=== PATIENT | male | born 1980 | race Hispanic/Latino ===

== ENCOUNTER 2018-05-02 10:47 | Emergency (ER) | payer OTHER ==
[2018-05-02 11:11] VITALS: RESP 18
[2018-05-02] MEDS ORDERED: Sodium Chloride 0.9% 1,000 ML IV STA ×2 (11:21→13:07)
--- NOTE | 2018-05-02 11:25 | ED PDOC ---
HPI: Influenza Additional complaint(s):: CC: bodyaches, fever and chills HPI: 37 yo male PMHx HTN presents to ER with complaints of bodyaches, fever (102.4 F tmax last night) and chills since last night. Patient reports feeling tired x 1.5 weeks. States he went to [facility] this AM and was positive for influenza. He received depo-medrol IM injection at the urgent care and was advised to come to ER. Patient reports feeling nauseous this morning but not now. Reports nasal congestion but denies cough, dyspnea, chest pain, abdominal pain, vomiting or diarrhea. Patient did not receive flu vaccine. PMD: [place] PMHx: HTN PSx: denies Social hx: smokes 3-4 cigarettes daily x 10 yrs. Drinks socially. Denies drugs uses Family hx: father: HTN Medication: Lisinopril 20 mg Allergies: NKDA <Sultan Tim - Last Filed: 05/02/18 14:10> <Giacomo Puentes - Last Filed: 05/02/18 15:44> Time Seen by Provider: 05/02/18 10:55 Chief Complaint: Flu-like Symptoms Past Medical History Vital Signs: Last Vital Signs Temp 102.7 F H 05/02/18 11:10 Pulse 108 H 05/02/18 11:10 Resp 18 05/02/18 11:10 BP 133/69 05/02/18 11:10 Pulse Ox 96 05/02/18 11:10 - Medical History PMH: HTN - Immunization History Hx Tetanus Toxoid Vaccination: No Hx Influenza Vaccination: No Hx Pneumococcal Vaccination: No <Sultan Tim - Last Filed: 05/02/18 14:10> Vital Signs: Last Vital Signs Temp 99.9 F H 05/02/18 13:38 Pulse 99 H 05/02/18 13:38 Resp 18 05/02/18 12:29 BP 111/65 05/02/18 12:29 Pulse Ox 96 05/02/18 14:12 - Family History Family History: States: Unknown Family Hx <Giacomo Puentes - Last Filed: 05/02/18 15:44> - Home Medications Home Medications: Ambulatory Orders Medication Instructions Recorded Benzonatate [Tessalon Perles] 100 mg PO BID PRN 5 Days sgl 05/02/18 Ibuprofen [Motrin] 600 mg PO TID 7 Days tab 05/02/18 Oseltamivir Phosphate [Tamiflu] 75 mg PO BID 5 Days capsule 05/02/18 - Allergies Allergies/Adverse Reactions: Allergies Allergy/AdvReac Type Severity Reaction Status Date / Time No Known Allergies Allergy Verified 05/02/18 11:09 Review of Systems ROS Statement: Except As Marked, All Systems Reviewed And Found Negative <Tim - Last Filed: 05/02/18 14:10> Physical Exam - Physical Exam Appears: Positive for: Non-toxic, No Acute Distress Head Exam: Positive for: ATRAUMATIC, NORMOCEPHALIC Skin: Positive for: Normal Color, Warm ENT: Positive for: Pharyngeal Erythema, Tonsillar Swelling. Negative for: Tonsillar Exudate Neck: Positive for: Normal, Supple Cardiovascular/Chest: Positive for: Tachycardia (regular rhythm, normal S1,S2) Respiratory: Positive for: Normal Breath Sounds. Negative for: Crackles, Rales, Rhonchi, Wheezing, Respiratory Distress Gastrointestinal/Abdominal: Positive for: Normal Exam, Bowel Sounds, Soft. Negative for: Tenderness Neurologic/Psych: Positive for: Alert, Oriented <[place] - Last Filed: 05/02/18 14:10> - Physical Exam Respiratory: Positive for: Normal Breath Sounds Back: Positive for: Normal Inspection <Giacomo Puentes - Last Filed: 05/02/18 15:44> - Laboratory Results Result Diagrams: 05/02/18 11:50 05/02/18 11:50 - ECG O2 Sat by Pulse Oximetry: 96 - Progress ED Course And Treament: 37 yo male has fever, chills and bodyaches. +influeza test at urgent care this AM Plan: CBC CMP CXR EKG [place] test Troponin Toradol IVF: NS 1 L @1000 CC/HR Tamiflu 75 mg Patient's WBC is 18.9 with left shift Additional 1 L IVF, VBG and lactic acid ordered VBG and lactic acid unremarkable Patient's HR and fever improving. Patient is feeling better. Plan d/w Dr. Puentes <Sultan Tim - Last Filed: 05/02/18 14:10> - Laboratory Results Result Diagrams: 05/02/18 11:50 05/02/18 11:50 Interpretation Of Abn Labs: 18.9 wbc - ECG Pulse Ox Interpretation: Normal - Progress ED Course And Treament: 1540: Stable. AAOx3. Pain free. Wants to go home. Feels much better. <Giacomo Puentes - Last Filed: 05/02/18 15:44> Disposition <Sultan Tim - Last Filed: 05/02/18 14:10> - Patient ED Disposition Is Patient to be Admitted: No Counseled Patient/Family Regarding: Studies Performed, Diagnosis, Need For Followup, Rx Given - Disposition Disposition: Routine/Home Disposition Time: 15:41 <Giacomo Puentes - Last Filed: 05/02/18 15:44> - Clinical Impression Clinical Impression: Influenza, Leukocytosis - Disposition Referrals: [facility] [Outside] - 05/03/18 Condition: STABLE Additional Instructions: Return if not better in 3 days. Prescriptions: Benzonatate [Tessalon Perles] 100 mg PO BID PRN 5 Days sgl PRN Reason: Cough Ibuprofen [Motrin] 600 mg PO TID 7 Days tab Oseltamivir Phosphate [Tamiflu] 75 mg PO BID 5 Days capsule Instructions: Flu, Adult (DC), White Blood Cell Count Differential Test Forms: scrible (Bulgarian), [facility] ED School/Work Excuse Supervising Attending Note - Supervising Attending Note The Documented history was done by the: Physician Trans Router The documented physical exam was done by the: Physician Trans Router The documented procedures were done by the: Physician Trans Router - Attestation: I have personally seen and examined this patient.: Yes I have fully participated in the care of the patient.: Yes I have reviewed all pertinent clinical information: Yes - Notes: Notes:: Cough. Positive flu at prompt MD. <Giacomo Puentes - Last Filed: 05/02/18 15:44>
--- NOTE | 2018-05-02 11:58 | RAD ---
Date of service: 05/02/2018 HISTORY: dyspnea COMPARISON: No prior. FINDINGS: LUNGS: The lungs are well inflated and clear. PLEURA: No pleural effusions or pneumothorax. CARDIOVASCULAR: The heart is normal in size. No aortic atherosclerotic calcification present. OSSEOUS STRUCTURES: Within normal limits for the patient's age. VISUALIZED UPPER ABDOMEN: Normal. OTHER FINDINGS: None. IMPRESSION: No active pulmonary disease.
[2018-05-02 12:08] LABS: BASO % 0.1 % (0.0-2.0); EOS % 0.1 % (0.0-4.0); HEMOGLOBIN 14.2 g/dL (12.0-18.0); LYMPH # 0.8 K/uL (1.0-4.3); MEAN CORPUSCULAR HEMOGLOBIN 26.3 pg (27.0-31.0); MEAN CORPUSCULAR HGB CONC 32.5 g/dL (33.0-37.0); MEAN PLATELET VOLUME 7.8 fl (7.2-11.7); MONO # 1.1 K/uL (0.0-0.8); MONO % 5.6 % (0.0-10.0); NEUT # 17.1 K/uL (1.8-7.0); NEUT % 90.2 % (50.0-75.0); NRBC % 0.1 % (0.0-0.0); PLATELET COUNT 271 K/uL (130-400); RBC 5.39 Mil/uL (4.40-5.90); RED CELL DISTRIBUTION WIDTH 13.7 % (11.5-14.5); WHITE BLOOD COUNT 18.9 K/uL (4.8-10.8)
[2018-05-02 12:13] LABS: ALB/GLOB RATIO 1.3 (1.0-2.1); ALBUMIN 4.5 g/dL (3.5-5.0); ALT/SGPT 27 U/L (21-72); AST/SGOT 42 U/L (17-59); BLOOD UREA NITROGEN 20 mg/dl (9-20); CALCIUM 9.7 mg/dL (8.4-10.2); GFR NON-AFRICAN AMERICAN > 60
[2018-05-02 13:16] LABS: LYMPHOCYTE 7 % (20-50); MONOCYTE 6 % (0-10); NEUTROPHIL 87 % (42-75); PLATELET ESTIMATE NORMAL (NORMAL); TOTAL CELLS COUNTED 100
[2018-05-02 13:32] LABS: VENOUS BLOOD GAS BASE EXCESS 0.5 mmol/L (0.0-2.0); VENOUS BLOOD GAS PCO2 37 mmHg (40-60); VENOUS BLOOD GAS PO2 66 mm/Hg (30-55); VENOUS BLOOD PH 7.43 (7.32-7.43)
[2018-05-02 16:42] VITALS: BP 122/73; PULSE 88; TEMP 99.4; O2SAT 100
--- NOTE | 2018-05-02 22:42 | CARD ---
APPROVED REPORT Date of service: 05/02/2018 EKG Measurement Heart [id number] <Conclusion> Sinus tachycardia Otherwise normal ECG
== END 2018-05-02 16:00 | disposition home or self-care (01) ==
LOC: H.ER 10:47
DX: J11.1 Influenza due to unidentified influenza virus with other respiratory manifestations (principal); D72.829 Elevated white blood cell count, unspecified; I10 Essential (primary) hypertension; F17.210 Nicotine dependence, cigarettes, uncomplicated
CPT/HCPCS: 71045; 80053; 82803; 84484; 85025; 86308; 87040; 93005; 96374; 99284; J1885; J7030